=== PATIENT | female | born 2000 | race Caucasian/White ===

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

== ENCOUNTER 2018-01-27 12:44 | Day surgery (SDC) | payer OTHER ==
[2018-01-25 15:04] VITALS: BMI 31.6
[~2018-01-27 12:44] MED LIST: SODIUM CHLORIDE 0.9% 1,000 ML IV SCH; ceFAZolin IN SWFI 2 GM/20 ML SYRINGE IVP ONE
[2018-01-27 13:27] VITALS: RESP 16; TEMP 98.2
[2018-01-27] MEDS ORDERED: MIDAZOLAM 2 MG/2 ML VIAL ONE ×3 (14:03→14:22)
[2018-01-27] MEDS: MIDAZOLAM 2 MG/2 ML VIAL IV ONE ×2 (14:07→14:14)
[2018-01-27] MEDS: LIDOCAINE 2% INJ 20 MG/ML SQ ONE ×2 (14:13→14:19)
[2018-01-27] MEDS ORDERED: LIDOCAINE 2% INJ 20 MG/ML SQ ONE ×2 (14:14→14:25)
[2018-01-27] MEDS ORDERED: fentaNYL (PF) 50 MCG/ML 2 ML AMP ONE (14:17)
[2018-01-27] MEDS ORDERED: MIDAZOLAM 2 MG/2 ML VIAL IV ONE ×2 (14:20→14:23)
[2018-01-27] MEDS ORDERED: fentaNYL (PF) 50 MCG/ML 2 ML AMP IV ONE (14:20)
[2018-01-27] MEDS ORDERED: IBUPROFEN 600 MG TAB PO STA (14:36)
[2018-01-27] MEDS ORDERED: ACETAMINOPHEN IV (For NPO) 1,000 MG in EMPTY BAG 1 BAG IVPB ONE (14:38)
--- NOTE | 2018-01-27 14:41 | P.PCN ---
Preoperative Diagnosis: Patient underwent EP procedure under conscious sedation/moderate sedation, monitoring of the level of consciousness and physiologic parameters including but not limited to vital signs and oxygenation. Patient tolerated the procedure well without any acute complications. Start time: 1412 Stop time: 1434 22 minutes Loop monitor implant Primary physicians: Dr. Nicki Jesus Manager Hydraulic: Dr. Patel Indication: Recurrent syncope with palpitations Patient was brought to the EP lab in a fasting state. Written informed consent was obtained prior to the procedure. The left pectoral area was prepped and draped per protocol. Intravenous antibiotic was administered preoperatively. A subcutaneous Loop monitor was implanted successfully and the wound was closed per protocol. The device was programmed to detect significant latoya- arrhythmic and tachy-arrhythmic events, per protocol. Device and programming details: Programmed for detection of tachyarrhythmias as well as bradycardia arrhythmias
[2018-01-27] MEDS ORDERED: ACETAMINOPHEN IV (For NPO) 1,000 MG in EMPTY BAG 1 BAG IVPB STA (14:57)
[2018-01-27 16:03] VITALS: BP 114/55; PULSE 74
== END 2018-01-27 15:52 | disposition home or self-care (01) ==
LOC: CATHEP 12:44
PROVIDERS: ATTEND Internal Medicine Clinical Cardiac Electrophysiology
DX: R55 Syncope and collapse (principal); R00.2 Palpitations; R07.89 Other chest pain; Z79.51 Long term (current) use of inhaled steroids
CPT/HCPCS: 33282; 81025; C1764; J2001; J2250; J3010; J0690

== ENCOUNTER → 2020-09-09 | Outpatient (CLI) | payer OTHER ==
--- NOTE | 2020-09-09 12:31 | US ---
EXAMINATION TYPE: Transabdominal DATE OF EXAM: 09/09/2020 12:02 PM COMPARISON: NONE CLINICAL HISTORY: O46.91 Bleeding. Cramping discharge. EXAM PERFORMED: Transabdominal (TA) EXAM MEASUREMENTS: GESTATIONAL AGE / DATING Physician Established: (9 weeks/2 days) EDC: 04/12/2021 Dates by LMP: (9 weeks/2 days) EDC: 04/12/2021 Dates by First Scan: No previous this is first scan Dates by Current Scan for: (9 weeks/5 days) EDC: 04/09/2021 MATERNAL ANATOMY Uterus: 13.5 x 5.8 x 9.1 cm Right Ovary: 4.1 x 2.6 x 2.8 cm Left Ovary: 2.8 x 1.7 x 2.0 cm Post CDS / Adnexa: wnl Presence of free fluid: no Presence of corpus luteal cyst: yes Presence of subchorionic bleed: no GESTATION / SURVEY CRL: 2.9 cm (9 weeks/5 days) MSD: 5.5 cm (11 weeks/4 days) Yolk Sac (normal less than 6mm): 4 mm Heart Rate: 162 bpm Rhythm: Normal IUP: Viable IUP Beta HcG (if available): Not available at this time Single live intrauterine gestation with gestational sac, yolk sac, and pole are seen. No free f luid in pelvic cul-de-sac. Both ovaries seen. No suspicious extraovarian adnexal mass. IMPRESSION: Single live intrauterine gestation, mean crown-rump length 2.9 cm corresponding to 9 week 5 day old fetus.
== END | disposition home or self-care (01) ==
LOC: RADUSWWP 11:32
PROVIDERS: ATTEND Obstetrics & Gynecology
DX: O26.891 Other specified pregnancy related conditions, first trimester (principal); Z3A.09 9 weeks gestation of pregnancy; O46.91 Antepartum hemorrhage, unspecified, first trimester
CPT/HCPCS: 76801

== ENCOUNTER 2020-12-29 11:30 | Outpatient (CLI) | payer OTHER ==
[2020-12-29 13:01] VITALS: BP 118/55; PULSE 75; RESP 18; TEMP 97.1
--- NOTE | 2020-12-30 07:37 | P.MSEPDOC ---
Presenting Problems - Arrival Data Date of Arrival on Unit: 12/29/20 Time of Arrival on Unit: 11:40 Mode of Transport: Ambulatory - Complaint OB-Reason for Admission/Chief Complaint: Other Comment: c/o nausea onset last night. denies n/v/d, denies being exposed to sickness recently. crampiness onset yesterday morning that is continuing. states clear-yellow discharge. no fuid leaking or bleeding. hx of bleeding early in , decreased activity, fetus has 2 vessel cord. Medical History - Information : 1 Para: 0 Term: 0 : 0 Abortions: Spontaneous or Elective: 0 Number of Living Children: 0 - Gestational Age Gestational Age by MARGARETH (wks/days): 25 Weeks and 1 Days - History Comment: A-Fib, (Verapamil) POTS syndrome, (tachycardiia), Review of Systems - Review of Systems Constitutional: No problems Breast: No problems ENT: No problems Cardiovascular: No problems Respiratory: No problems Gastrointestinal: No problems Genitourinary: No problems Musculoskeletal: No problems Neurological: No problems Skin: No problems Comment: increasedd activity nted on fm per audio and discussed with pt and her the noise they are hearuing is movement. verb underst. Vital Signs - Temperature Temperature: 97.1 F Temperature Source: Temporal Artery Scan - Pulse Right Brachial Pulse Rate: 75 Pulse Assessment Method: Automatic Cuff - Respirations Respiratory Rate: 18 Oxygen Delivery Method: Room Air O2 Sat by Pulse Oximetry: 96 - Blood Pressure Right Arm Blood Pressure: 118/55 Blood Pressure Mean: 76 Blood Pressure Source: Automatic Cuff Medical Screen Scoring (Pre) - Cervical Exam Dilation: Exam Deferred Effacement: Exam Deferred Membranes: Intact - Uterine Contractions Frequency: N/A Duration: N/A Intensity: N/A - Maternal Vital Signs Maternal Temperature: N/A Maternal Blood Pressure: N/A Signs of Preeclampsia: N/A Maternal Respirations: N/A - Maternal Trauma Maternal Trauma: N/A - Assessment - Baby A Baseline FHR: 140 Heart Rate - NICHD Category: Category I (Normal) = 0 Position: N/A Station: N/A - Total Score - Baby A Total Score - Baby A: 0 - Total Score - Baby B Total Score - Baby B: 0 - Total Score - Baby C Total Score - Baby C: 0 - Level of Risk - Baby A Level of Risk - Baby A: Low (0-5) - Level of Risk - Baby B Level of Risk - Baby B: Low (0-5) - Level of Risk - Baby C Level of Risk - Baby C: Low (0-5) Physician Notification (Pre) - Physician Notified Physician Notified Date: 12/29/20 Physician Notified Time: 12:25 New Order Received: Yes - Notification Comment Comment: discharge home. keep sched appt. pelvic rest. increase fluid, eatlightly as tolerated until nausea passes. to call if symptoms worsen. Disposition - Disposition OB Disposition: Physician follow up in office, Discharge to home Discharge Date: 12/29/20 Discharge Time: 12:40 I agree with the RN Medical Screening Exam: Yes Case reviewed; plan agreed upon as documented in EMR&OBIX.: Yes Comments: Patient was neither seen nor examined by me. Diagnosis: DECREASED MOVEMENTS, SECOND TRIMESTER, FETUS 1
== END 2020-12-29 12:40 | disposition home or self-care (01) ==
LOC: FBPOP 11:30
PROVIDERS: ATTEND Obstetrics & Gynecology
DX: O36.8121 Decreased fetal movements, second trimester, fetus 1 (principal); Z3A.25 25 weeks gestation of pregnancy
CPT/HCPCS: 99213

== ENCOUNTER 2021-02-06 18:17 | Outpatient (CLI) | payer OTHER ==
[2021-02-06 20:01] LABS: Appearance,Urine Clear (Clear); Bacteria,Urine Occasional /hpf; Bilirubin,Urine Negative (Negative); Blood,Urine Negative (Negative); Color,Urine Light Yellow; Glucose,Urine (UA) Negative (Negative); Ketones,Urine Negative (Negative); Leukocyte Esterase,Urine Moderate (Negative); Nitrite,Urine Negative (Negative); PH, Urine 6.5 (5.0-8.0); Protein,Urine Negative (Negative); RBC,Urine <1 /hpf (0-5); Specific Gravity,Urine 1.005 (1.001-1.035); Squamous Epithelial Cell,Urine 2 /hpf (0-4); Urobilinogen,Urine <2.0 mg/dL (<2.0); WBC,Urine 1 /hpf (0-5)
[2021-02-06 20:57] VITALS: BP 129/66; PULSE 83; RESP 16; TEMP 97.6
--- NOTE | 2021-03-23 11:18 | P.MSEPDOC ---
Presenting Problems - Arrival Data Date of Arrival on Unit: 02/06/21 Time of Arrival on Unit: 18:17 Mode of Transport: Ambulatory - Complaint OB-Reason for Admission/Chief Complaint: Pain Comment: pt. c/o pain to fron lower part of her ABD that radiats to the back on both sides, rating pain 8/10, and spotting that started at 1400 today. no spotting present since present to triage Medical History - Information : 1 Para: 0 Term: 0 : 0 Abortions: Spontaneous or Elective: 0 Number of Living Children: 0 - Gestational Age Gestational Age by MARGARETH (wks/days): 30 Weeks and 5 Days Review of Systems - Review of Systems Constitutional: No problems Breast: No problems ENT: No problems Cardiovascular: No problems Respiratory: No problems Gastrointestinal: No problems Genitourinary: No problems Musculoskeletal: No problems Neurological: No problems Skin: No problems Vital Signs - Temperature Temperature: 97.6 F Temperature Source: Temporal Artery Scan - Pulse Pulse Oximetery Pulse Rate: 83 Pulse Assessment Method: Pulse Oximetry - Respirations Respiratory Rate: 16 Oxygen Delivery Method: Room Air O2 Sat by Pulse Oximetry: 100 - Blood Pressure Right Arm Blood Pressure: 129/66 Blood Pressure Mean: 87 Blood Pressure Source: Automatic Cuff Medical Screen Scoring - Assessment - Baby A Baseline FHR: 135 Physician Notification - Physician Notified Physician Notified Date: 02/06/21 Physician Notified Time: 19:00 Physician: Gabriel Mishra Order Received: Yes - Notification Comment Comment: send UA, check cervix, and see if patient has pelvic pain with gental palpation, symphisis pubic pain with palpation, cervix closed thick and high, UA results reviewed, order to complete culture on UA, discharge patient home and suggest maternal support belt to help with pain Disposition - Disposition OB Disposition: Discharge to home Discharge Date: 02/06/21 Discharge Time: 20:18 I agree with the RN Medical Screening Exam: Yes Physician's MSE Comment: I have neither seen nor examined the patient Case reviewed; plan agreed upon as documented in EMR&OBIX.: Yes Diagnosis: RELATED CONDITIONS, UNSPECIFIED, THIRD TRIMESTER
== END 2021-02-06 20:18 | disposition home or self-care (01) ==
LOC: FBPOP 18:17
PROVIDERS: ATTEND Obstetrics & Gynecology
DX: O26.893 Other specified pregnancy related conditions, third trimester (principal); R10.30 Lower abdominal pain, unspecified; Z3A.30 30 weeks gestation of pregnancy
CPT/HCPCS: 59025; 81001; 87086; 99213

== ENCOUNTER 2021-03-06 12:52 | Outpatient (CLI) | payer OTHER ==
[2021-03-06 14:31] LABS: Appearance,Urine Cloudy (Clear); Bacteria,Urine Occasional /hpf; Bilirubin,Urine Negative (Negative); Blood,Urine Negative (Negative); Color,Urine Yellow; Glucose,Urine (UA) Negative (Negative); Ketones,Urine Negative (Negative); Leukocyte Esterase,Urine Large (Negative); Mucus,Urine Rare /hpf; Nitrite,Urine Negative (Negative); Protein,Urine Negative (Negative); RBC,Urine <1 /hpf (0-5); Specific Gravity,Urine 1.015 (1.001-1.035); Squamous Epithelial Cell,Urine 8 /hpf (0-4); Urobilinogen,Urine <2.0 mg/dL (<2.0); WBC,Urine 3 /hpf (0-5)
[2021-03-06 15:04] VITALS: BP 131/75; PULSE 115; RESP 18; TEMP 96.6
--- NOTE | 2021-03-25 09:39 | P.MSEPDOC ---
Presenting Problems - Arrival Data Date of Arrival on Unit: 03/06/21 Time of Arrival on Unit: 12:52 Mode of Transport: Ambulatory - Complaint OB-Reason for Admission/Chief Complaint: PIH Comment: pt states having elevated bp at home, Medical History - Information : 1 Para: 0 Term: 0 : 0 Abortions: Spontaneous or Elective: 0 Number of Living Children: 0 - Gestational Age Gestational Age by MARGARETH (wks/days): 34 Weeks and 5 Days Review of Systems - Review of Systems Constitutional: No problems Breast: No problems ENT: No problems Cardiovascular: No problems Respiratory: No problems Gastrointestinal: No problems Genitourinary: No problems Musculoskeletal: No problems Neurological: No problems Skin: No problems Vital Signs - Temperature Temperature: 96.6 F Temperature Source: Temporal Artery Scan - Pulse Right Brachial Pulse Rate: 115 Pulse Assessment Method: Automatic Cuff - Respirations Respiratory Rate: 18 Oxygen Delivery Method: Room Air O2 Sat by Pulse Oximetry: 99 - Blood Pressure Right Arm Blood Pressure: 131/75 Blood Pressure Mean: 93 Blood Pressure Source: Automatic Cuff Medical Screen Scoring - Assessment - Baby A Baseline FHR: 125 Physician Notification - Physician Notified Physician Notified Date: 03/06/21 Physician Notified Time: 14:15 Physician: Sagrario Padgett Order Received: Yes - Notification Comment Comment: ua results negative for protien, bp within normal in triage, pt to follow up in office on wednesday at scheduled appt and bring home bp cuff with her to verify accuracy in office Disposition - Disposition OB Disposition: Physician follow up in office, Triage, Discharge to home, Written follow up instructions reviewed Discharge Date: 03/06/21 Discharge Time: 14:39 I agree with the RN Medical Screening Exam: Yes Case reviewed; plan agreed upon as documented in EMR&OBIX.: Yes Comments: Pateint was neither seen nor examined by me. Diagnosis: RELATED CONDITIONS, UNSPECIFIED, THIRD TRIMESTER
== END 2021-03-06 14:39 | disposition home or self-care (01) ==
LOC: FBPOP 12:52
PROVIDERS: ATTEND Obstetrics & Gynecology
DX: O99.893 Other specified diseases and conditions complicating puerperium (principal); R03.0 Elevated blood-pressure reading, without diagnosis of hypertension; Z3A.34 34 weeks gestation of pregnancy
CPT/HCPCS: 59025; 81001; 99215

== ENCOUNTER 2021-04-03 20:13 | Outpatient (CLI) | payer OTHER ==
[2021-04-04 02:04] VITALS: RESP 16
--- NOTE | 2021-04-04 08:41 | P.MSEPDOC ---
Presenting Problems - Arrival Data Date of Arrival on Unit: 04/03/21 Time of Arrival on Unit: 20:13 Mode of Transport: Ambulatory - Complaint OB-Reason for Admission/Chief Complaint: Possible Onset of Labor Comment: pt. present to triage due to contraction every 4-5 min Medical History - Information : 1 Para: 0 Term: 0 : 0 Abortions: Spontaneous or Elective: 0 Number of Living Children: 0 - Gestational Age Gestational Age by MARGARETH (wks/days): 38 Weeks and 6 Days Review of Systems - Review of Systems Constitutional: No problems Breast: No problems ENT: No problems Cardiovascular: No problems Respiratory: No problems Gastrointestinal: No problems Genitourinary: No problems Musculoskeletal: No problems Neurological: No problems Skin: No problems Vital Signs - Respirations Respiratory Rate: 16 Oxygen Delivery Method: Room Air Medical Screen Scoring - Cervical Exam Dilation (cm): 2 Effacement (%): 70 Station: -3 Membranes: Intact - Uterine Contractions Frequency From (mins): 3 Frequency To (mins): 7 Duration From (seconds): 30 Duration To (seconds): 80 Intensity: Moderate Resting: Soft to palpation - Assessment - Baby A Heart Rate - NICHD Category: Category I (Normal) NST: Reactive Physician Notification - Physician Notified Physician Notified Date: 04/04/21 Physician Notified Time: 21:28 Physician: Sagrario Padgett Order Received: Yes - Notification Comment Comment: cervix made no change after 1 hour, still 2cm, 70, -3, orders to discharge patient home Maternal Triage Index - Maternal Triage Index Presenting for scheduled procedure w/no complaint: No - Stat/Priority 1 Stat Priority 1: No - Urgent/Priority 2 Urgent Priority 2: No - Prompt/Priority 3 Prompt Priority 3: Yes Criteria Met for Priority 3: 38 and 5, cervix 2, 70%. -3 remains the same after one hour, contraction irregular 3-7 min Disposition - Disposition OB Disposition: Discharge to home Discharge Date: 04/04/21 Discharge Time: 21:31 I agree with the RN Medical Screening Exam: Yes Case reviewed; plan agreed upon as documented in EMR&OBIX.: Yes Comments: Patient was neither seen nor examined by me Diagnosis: FALSE LABOR AT OR AFTER 37 COMPLETED WEEKS OF GESTATION
== END 2021-04-03 21:31 | disposition home or self-care (01) ==
LOC: FBPOP 20:13
PROVIDERS: ATTEND Obstetrics & Gynecology
DX: O47.1 False labor at or after 37 completed weeks of gestation (principal); Z3A.38 38 weeks gestation of pregnancy
CPT/HCPCS: 59025; 99213

== ENCOUNTER 2021-04-04 00:14 | Inpatient (IN) | payer OTHER ==
[2021-04-04] MEDS ORDERED: METHYLERGONOVINE 0.2 MG/ML 1 ML AMP IM PRN (00:49)
[2021-04-04] MEDS ORDERED: OXYTOCIN 10 UNIT/ML 1 ML VIAL IM PRN (00:49)
[2021-04-04] MEDS ORDERED: CARBOPROST TROMETHAMINE 250 MCG/ML 1 ML AMP IM PRN (00:49)
[2021-04-04] MEDS ORDERED: TERBUTALINE 1 MG/ML VIAL SQ PRN (00:49)
[2021-04-04] MEDS ORDERED: LIDOCAINE 0.5% (PF) 5 MG/ML (50 ML SDV) SQ PRN (00:49)
[2021-04-04] MEDS: BUTORPHANOL 1 MG/ML 1 ML VIAL IV PRN ×2 (01:10→03:18)
[2021-04-04] MEDS: LACTATED RINGERS 1,000 ML IV SCH ×3 (01:10→05:44)
[2021-04-04 01:41] LABS: Basophils % (A) 0 %; Eosinophils # (A) 0.1 k/uL (0-0.7); Eosinophils % (A) 1 %; HCT 36.9 % (34.0-46.0); HGB 12.7 gm/dL (11.4-16.0); Lymphocytes # (A) 2.5 k/uL (1.0-4.8); Lymphocytes % (A) 18 %; MCH 29.5 pg (25.0-35.0); MCHC 34.4 g/dL (31.0-37.0); MCV 85.7 fL (80.0-100.0); Mean Platelet Volume 9.5; Monocytes # (A) 0.6 k/uL (0-1.0); Monocytes % (A) 5 %; Neutrophils # (A) 10.3 k/uL (1.3-7.7); Neutrophils % (A) 75 %; Platelet Count 251 k/uL (150-450); RBC 4.31 m/uL (3.80-5.40); RDW 13.4 % (11.5-15.5); WBC 13.7 k/uL (3.8-10.6)
[2021-04-04 01:49] VITALS: RESP 16
[2021-04-04] MEDS ORDERED: SODIUM CHLORIDE 0.9% 100 ML BAG ONE (05:10)
[2021-04-04] MEDS ORDERED: ROPIVACAINE 5MG/ML 20ML VIAL ONE (05:10)
[2021-04-04] MEDS ORDERED: PROPOFOL 10 MG/ML 20 ML VIAL IV ONE (05:10)
[2021-04-04] MEDS ORDERED: PHENYLEPHRINE-0.9% NACL SYG 1,000 MCG/10 ML SYRINGE ONE (05:10)
[2021-04-04] MEDS ORDERED: OXYTOCIN 30 UNITS/500 ML NS 30 UNIT in SALINE 1 500ML.BAG IV SCH (06:15)
--- NOTE | 2021-04-04 08:32 | P.HPOB ---
History of Present Illness H&P Date: 04/04/21 Chief Complaint: Strong regular uterine contractions This is a 20-year-old white female 1 para 0 EDC 04/12/2021 at 38-6/7 weeks' gestation. Patient presented with strong regular uterine contractions, in active labor from home. Fetus active throughout the . history significant for single umbilical artery, blood type O negative, rubella status nonimmune. Hepatitis B surface antigen, HIV testing, gonorrhea and chlamydia cultures, group B strep cultures, urine culture all negative. One-hour Glucola 118. Past medical history is significant for asthma, atrial fibrillation, PCO OS, supraventricular tachycardia. Past surgical history tonsillectomy and adenoid ectomy. Cholecystectomy, cardiac cath per Dr. marie. Current medications verapamil 40 mg daily, vitamin daily. ALLERGIES none known. Family history significant for diabetes, Crohn's disease, unspecified defects. Social history patient has never been a smoker or 3 per, she is , she works at [employer], she denies alcohol tobacco or drug use. On exam patient is 5 foot 5 inches, 218 pounds, blood pressure 122/68, pulse 83, respirations 16, temperature 97.7, 99% O2 saturation. The general physical exam is within normal limits. Cervix is 9-1/2 cm at time of this dictation, -1 station, 90% effaced, vertex presentation. Spontaneous amniorrhexis has occurred for light meconium-stained fluid. heart rate is consistent with reactive NST. Impression: 38-6/7 weeks intrauterine , active spontaneous labor. Light meconium-stained fluid. Single umbilical artery noted. Otherwise all signs reassuring at this time. Plan: Oxytocin augmentation as needed. Continue close maternal and surveillance. Anticipate normal spontaneous vaginal delivery. Review of Systems Constitutional: Reports as per HPI Past Medical History Past Medical History: Atrial Fibrillation, Asthma, Syncope Additional Past Medical History / Comment(s): Paroxysmal Afib, orthostatic tachycardia syndrome. See Dr. Alvarado's H&P. History of Any Multi-Drug Resistant Organisms: None Reported Past Surgical History: Cholecystectomy, EPS, Tonsillectomy Additional Past Surgical History / Comment(s): EP study Past Anesthesia/Blood Transfusion Reactions: No Reported Reaction, Postoperative Nausea & Vomiting (PONV) Past Psychological History: No Psychological Hx Reported Additional Psychological History / Comment(s): Pt resides with her boyfriend. She is independent. She drives. She works at a hardware store. Smoking Status: Never smoker Past Alcohol Use History: None Reported Past Drug Use History: None Reported - Past Family History Mother Family Medical History: No Reported History Father Family Medical History: No Reported History Medications and Allergies Home Medications Medication Instructions Recorded Confirmed Type Pnv,Calcium 72/Iron/Folic Acid 1 each PO DAILY MDD 1 tab 12/29/20 04/04/21 History [ Plus Tablet] Verapamil [Isoptin] 40 mg PO ONCE MDD 40 12/29/20 04/04/21 History Allergies Allergy/AdvReac Type Severity Reaction Status Date / Time No Known Allergies Allergy Verified 03/29/21 21:57 Exam Vital Signs Temp Pulse Resp BP 04/04/21 00:46 97.7 F 83 16 122/68 Intake and Output 04/03/21 04/04/21 04/04/21 22:59 06:59 14:59 Intake Total 1999 Balance 1999 Intake: IV 1999 Other: Weight 98.883 kg See dictation under HPI please Results Result Diagrams: 04/04/21 01:00 Abnormal Lab Results - Last 24 Hours (Table) 04/04/21 Range/Units 01:00 WBC 13.7 H (3.8-10.6) k/uL Neutrophils # 10.3 H (1.3-7.7) k/uL Assessment and Plan Assessment: 38-6/7 weeks intrauterine , single umbilical artery, light meconium- stained fluid, maternal history of atrial fibrillation cardiac status stable, active labor. Epidural in place. All signs reassuring. Plan: Continue close maternal and surveillance. Anticipate normal spontaneous vaginal delivery.
[2021-04-04] MEDS ORDERED: VERAPAMIL 40 MG TAB PO STA (08:33)
[2021-04-04] MEDS ORDERED: diphenhydrAMINE 25 MG CAP PO PRN (10:26)
[2021-04-04] MEDS ORDERED: LANOLIN CREAM 5 GM TUBE TOPICAL PRN (10:26)
[2021-04-04] MEDS ORDERED: ACETAMINOPHEN TAB 325 MG TAB PO PRN (10:26)
[2021-04-04] MEDS ORDERED: MEASLES-MUMPS-RUBELLA VACC/PF 12,500 UNIT/0.5 ML VIAL SQ ONE (10:26)
[2021-04-04] MEDS ORDERED: BENZOCAINE/MENTHOL SPRAY 1 GM/SPRAY AEROSOL TOPICAL PRN (10:26)
[2021-04-04] MEDS ORDERED: diphenhydrAMINE 50 MG CAP PO PRN (10:26)
[2021-04-04] MEDS ORDERED: diphenhydrAMINE 50 MG/ML 1 ML VIAL IVP PRN ×2 (10:26)
[2021-04-04] MEDS ORDERED: HYDROCORTISONE 2.5% RECTAL CREAM 30 GM TUBE RECTAL PRN (10:26)
[2021-04-04] MEDS ORDERED: ZOLPIDEM 5 MG TAB PO PRN (10:26)
[2021-04-04] MEDS ORDERED: SIMETHICONE 80 MG CHEWABLE PO PRN (10:26)
[2021-04-04] MEDS ORDERED: diphenhydrAMINE ELIXIR 25 MG/10 ML CUP PO PRN (10:26)
--- NOTE | 2021-04-04 10:26 | P.PROBDLV ---
Vaginal Delivery Note - . Vaginal Delivery Note: This is a 20-year-old white female 1 para 0 EDC 04/12/2021 at 38-6/7 weeks' gestation who presented from home with strong regular uterine contractions. Fetus is been active throughout the . Blood type is O-, rubella status nonimmune, single umbilical artery noted. Spontaneous amniorrhexis at the bedside revealed light meconium-stained fluid. Please see my dictated history and physical for details. Oxytocin was started and titrated per hospital protocol as needed. Epidural was placed per her request. She progressed well through the first stage of labor and became completely dilated at 0850 hours. She began the second stage of labor at that time. With excellent maternal expulsive efforts slowly the infant crowned in the occiput anterior position. The perineal body was prepped and draped in usual sterile fashion. delivered occiput anterior and restituted accordingly. There was a nuchal cord 2 noted, this was easily reduced. Patient was officially delivered of a liveborn female infant at 1009 hours. Umbilical cord was doubly clamped and ligated, she was handed to waiting nurses for evaluation where scores of 9 and 9 at one and 5 minutes respectively were given. The placenta delivered spontaneously, it was inspected and noted to be intact with trivascular cord, a true knot in the cord, meconium-stained. It was sent to pathology for evaluation. Infant weighed 3485 g or 7 lbs. 11 oz. Careful inspection now of the cervix, vagina, perineum, periurethral, and perirectal areas revealed a small first-degree perineal laceration. This was repaired in the usual fashion with a [id number]-[id number]-[id number] suture of 3-0 Rapide. Uterus is firm and in the midline, symmetric and 18 week size. All sponge needle and enhancement counts are correct. Patient and her family are allowed to begin the bonding experience in the LDR.
[2021-04-04] MEDS: IBUPROFEN 600 MG TAB PO SCH ×4 (10:37→19:33)
[2021-04-04] MEDS: SENNOSIDES-DOCUSATE SODIUM 1 EACH TAB PO SCH (20:20)
[2021-04-05] MEDS: SENNOSIDES-DOCUSATE SODIUM 1 EACH TAB PO SCH (08:13)
[2021-04-05] MEDS: IBUPROFEN 600 MG TAB PO SCH (08:13)
--- NOTE | 2021-04-05 09:35 | P.DS ---
Providers Date of admission: 04/04/21 00:42 Expected date of discharge: 04/05/21 Attending physician: Sagrario Padgett Primary care physician: Stated None - Discharge Diagnosis(es) (1) Normal spontaneous vaginal delivery Current Visit: Yes Status: Acute Hospital Course: The patient is a 20-year-old 1 para 0 admitted at 38-6/7 weeks by good dating parameters. She is admitted in active labor with all signs reassuring. Her has been uncomfortable she is known to have a single umbilical artery and is also Rh- and received RhoGAM at 28 weeks. On labor and delivery, she had Pitocin augmentation started with spontaneous rupture of membranes. She had an epidural catheter placed for analgesia and then progressed to complete where after she pushed to a normal spontaneous vaginal delivery of a viable 7 lbs. 11 oz. baby girl with Apgars of 9 at 1 minute and 9 at 5 minutes. Her course was unremarkable with vital signs remaining stable and her temperature was afebrile throughout. She was deemed stable for discharge on day #1 was discharged home to follow-up in the office in 6 weeks' time routinely. Discharge instructions included calling for any significantly increased bleeding or foul-smelling lochia, significantly increased fever or abdominal pain, perineal complaints, breast complaints, or anything else that concerned her. She was additionally instructed to have nothing in the vagina for at least 6 weeks time to include intercourse. She understood her instructions and agrees follow up as noted above. Discharge medications included only [id number]-[id number] analgesic pain medications as well as continued vitamins as she has opted to breast-feed. Maternal blood type is O- and rubella status is nonimmune. She therefore was treated receive the MMR vaccination prior to discharge. Procedures: #1. Pitocin augmentation #2. Epidural analgesia #3. Normal spontaneous vaginal delivery 4. Repair of perineal laceration Patient Condition at Discharge: Stable Plan - Discharge Summary New Discharge Prescriptions: No Action Verapamil [Isoptin] 40 mg PO ONCE MDD 40 Pnv,Calcium 72/Iron/Folic Acid [ Plus Tablet] 1 each PO DAILY MDD 1 tab Discharge Medication List Pnv,Calcium 72/Iron/Folic Acid [ Plus Tablet] 1 each PO DAILY MDD 1 tab 12/29/20 [History] Verapamil [Isoptin] 40 mg PO ONCE MDD 40 12/29/20 [History] Follow up Appointment(s)/Referral(s): Sagrario Padgett MD [STAFF PHYSICIAN] - 6 Weeks Discharge Disposition: HOME SELF-CARE
[2021-04-05 11:19] VITALS: BP 108/65; PULSE 104; TEMP 97.8
== END 2021-04-05 13:07 | disposition home or self-care (01) | DRG 805 ==
LOC: FBPOP 00:14 → 4FBP 00:42
PROVIDERS: ADMIT Obstetrics & Gynecology; ATTEND Obstetrics & Gynecology
PROC: 10E0XZZ Delivery of Products of Conception, External Approach (ICD-10-PCS; principal; 2021-04-04)
PROC: 0HQ9XZZ Repair Perineum Skin, External Approach (ICD-10-PCS; 2021-04-04)
DX: O69.2XX0 Labor and delivery complicated by other cord entanglement, with compression, not applicable or unspecified (principal); O99.42 Diseases of the circulatory system complicating childbirth; Z37.0 Single live birth; O69.81X0 Labor and delivery complicated by cord around neck, without compression, not applicable or unspecified; I48.0 Paroxysmal atrial fibrillation; J45.909 Unspecified asthma, uncomplicated; O69.89X0 Labor and delivery complicated by other cord complications, not applicable or unspecified; O70.0 First degree perineal laceration during delivery; O77.0 Labor and delivery complicated by meconium in amniotic fluid; O99.52 Diseases of the respiratory system complicating childbirth; Z3A.38 38 weeks gestation of pregnancy; Z79.899 Other long term (current) drug therapy; Z83.3 Family history of diabetes mellitus
CPT/HCPCS: 85025; 86850; 86900; 86901; 88307; 90707

== ENCOUNTER 2021-08-14 09:36 | Emergency (ER) | payer OTHER ==
--- NOTE | 2021-08-14 12:18 | US ---
EXAMINATION TYPE: US transvaginal DATE OF EXAM: 08/14/2021 COMPARISON: NONE CLINICAL HISTORY: pain. Patient sent by Dr. Padgett. Patient bleeding and passing tissue. Patient not , but believed to have infection. TECHNIQUE: Transvaginal (TV) Date of LMP: bleeding and spotting since 07-21-21 EXAM MEASUREMENTS: Uterus: 7.9 x 5.2 x 2.3 cm Endometrial Stripe: 0.8 cm Right Ovary: Obscured by overlying bowel gas Left Ovary: 2.3 x 1.4 x 1.6 cm 1. Uterus: Anteverted wnl 2. Endometrium: wnl 3. Right Ovary: Obscured by overlying bowel gas 4. Left Ovary: wnl Spectral, color and waveform doppler imaging shows good arterial and venous flow within the left ov london; there is no evidence for ovarian torsion on left, right not seen. 5. Bilateral Adnexa: wnl 6. Posterior cul-de-sac: wnl IMPRESSION: 1. Visualized portions of the pelvic ultrasound appear unremarkable
[2021-08-14 13:02] LABS: ALT 24 U/L (4-34); AST 26 U/L (14-36); African American GFR (CKD) >90 (>60 ml/min/1.73 sqM); Albumin 4.6 g/dL (3.5-5.0); Alkaline Phosphatase 85 U/L (38-126); Anion Gap 12 mmol/L; Blood Urea Nitrogen 16 mg/dL (7-17); Calcium 9.6 mg/dL (8.4-10.2); Carbon Dioxide 19 mmol/L (22-30); Chloride 107 mmol/L (98-107); Glucose 98 mg/dL (74-99); Non-African American GFR(CKD) 84 (>60 ml/min/1.73 sqM); Potassium 3.8 mmol/L (3.5-5.1); Sodium 138 mmol/L (137-145); Total Bilirubin 0.7 mg/dL (0.2-1.3); Total Protein 7.6 g/dL (6.3-8.2)
[2021-08-14 13:07] LABS: Basophils % (A) 1 %; Eosinophils # (A) 0.1 k/uL (0-0.7); Eosinophils % (A) 1 %; HCT 47.7 % (34.0-46.0); HGB 16.4 gm/dL (11.4-16.0); Lymphocytes # (A) 1.1 k/uL (1.0-4.8); Lymphocytes % (A) 15 %; MCH 28.9 pg (25.0-35.0); MCHC 34.4 g/dL (31.0-37.0); Mean Platelet Volume 8.2; Monocytes # (A) 0.5 k/uL (0-1.0); Monocytes % (A) 7 %; Neutrophils # (A) 5.3 k/uL (1.3-7.7); Neutrophils % (A) 76 %; Platelet Count 264 k/uL (150-450); RBC 5.68 m/uL (3.80-5.40); RDW 12.8 % (11.5-15.5)
[2021-08-14] MEDS ORDERED: SODIUM CHLORIDE 0.9% 1,000 ML IV STA (13:25)
--- NOTE | 2021-08-14 14:01 | ED ---
General Adult HPI - General Chief complaint: Vaginal Bleeding Stated complaint: Vaginal bleeding/infection Time Seen by Provider: 08/14/21 11:33 Source: patient, RN notes reviewed Mode of arrival: ambulatory Limitations: no limitations - History of Present Illness Initial comments: 20-year-old female presents to the emergency department with complaints of vaginal bleeding, onset July 21. Patient states she received a Depo-Provera injection on June 21 after having routine vaginal delivery 4 months ago. Patient states she has had increased cramping and is passing large clots she describes as tissue in appearance since then. Patient states she was seen by her primary care provider who sent a clot to pathology- patient states the report shows fragment of benign endometrium. She continued to have heavy bleeding for the next approximately 10 days, and then was seen by her SILK SCREEN PROCESSOR who started her on an antibiotic which she has been taking compliantly. However, patient states she continues to have heavy bleeding and was sent here for f urther evaluation. Patient denies fever, chills, dizziness, headache, shortness of breath, chest pain, constipation, diarrhea, and dysuria. - Related Data Home Medications Medication Instructions Recorded Confirmed Verapamil [Isoptin] 20 mg PO BID 12/29/20 08/14/21 Amoxic-Pot Clav 875-125Mg 1 tab PO Q12HR 08/14/21 08/14/21 [Augmentin 875-125] Allergies Allergy/AdvReac Type Severity Reaction Status Date / Time No Known Allergies Allergy Verified 08/14/21 14:02 Review of Systems ROS Statement: Those systems with pertinent positive or pertinent negative responses have been documented in the HPI. ROS Other: All systems not noted in ROS Statement are negative. Past Medical History Past Medical History: Atrial Fibrillation, Asthma, Syncope Additional Past Medical History / Comment(s): Paroxysmal Afib, orthostatic tachycardia syndrome. See Dr. Alvarado's H&P. History of Any Multi-Drug Resistant Organisms: None Reported Past Surgical History: Cholecystectomy, EPS, Tonsillectomy Additional Past Surgical History / Comment(s): EP study Past Anesthesia/Blood Transfusion Reactions: No Reported Reaction, Postoperative Nausea & Vomiting (PONV) Past Psychological History: No Psychological Hx Reported Smoking Status: Never smoker Past Alcohol Use History: None Reported Past Drug Use History: None Reported - Past Family History Mother Family Medical History: No Reported History Father Family Medical History: No Reported History General Exam Limitations: no limitations General appearance: alert, in no apparent distress ENT exam: Present: normal exam, normal oropharynx, mucous membranes moist Neck exam: Present: normal inspection. Absent: tenderness, meningismus, lymphadenopathy Respiratory exam: Present: normal lung sounds bilaterally. Absent: respiratory distress, wheezes, rales, rhonchi, stridor Cardiovascular Exam: Present: regular rate, normal rhythm, normal heart sounds. Absent: systolic murmur, diastolic murmur, rubs, gallop, clicks GI/Abdominal exam: Present: soft, normal bowel sounds. Absent: distended, tenderness, guarding, rebound, rigid Neurological exam: Present: alert, oriented X3, CN II-XII intact Psychiatric exam: Present: normal affect, normal mood Skin exam: Present: warm, dry, intact, normal color. Absent: rash Course Vital Signs 08/14/21 08/14/21 08/14/21 11:29 14:31 15:32 Temperature 98.1 F 98.2 F Pulse Rate 98 90 86 Respiratory 20 20 16 Rate Blood Pressure 125/82 117/79 120/80 O2 Sat by Pulse 100 97 98 Oximetry - Reevaluation(s) Reevaluation #1: 08/14/21 13:00 She was provided with a glass of water and reminded of need for urine sample. 08/14/21 13:30 Patient states she is still unable to provide a urine sample therefore IV fluids will be ordered. 08/14/21 14:30 Offered straight cath, but patient she thinks she'll be able to provide a urine sample. Medical Decision Making - Medical Decision Making 20-year-old female presents to the emergency department for evaluation of intermittent heavy vaginal bleeding that began on July 21, preceded by Depo- Provera. Patient was seen by her SILK SCREEN PROCESSOR prior to arrival who sent her here for further evaluation and treatment. Upon exam, patient is well-appearing, afebrile , and tolerating oral intake without difficulty. Pelvic ultrasound was obtained and shows no significant findings. COVID test was negative. Laboratory specimens were reviewed, hemoglobin is 16.4, hematocrit 47.7; no leukocytosis. Patient was unable to provide a urine specimen, therefore IV fluids were given. Results were reviewed with my attending Dr. Euceda, who also spoke with patient's SILK SCREEN PROCESSOR Dr. Padgett. Patient will be discharged home to continue oral antibiotic therapy as previously prescribed. Patient is instructed to follow-up with her primary care provider or Dr. Padgett , as both have been involved in the care of this current complaint. Return parameters were discussed in detail. Patient verbalizes understanding and agrees with this plan. - Lab Data Result diagrams: 08/14/21 12:15 08/14/21 12:15 Lab Results 08/14/21 08/14/21 08/14/21 Range/Units 12:15 12:15 12:15 WBC 7.0 (3.8-10.6) k/uL RBC 5.68 H (3.80-5.40) m/uL Hgb 16.4 H (11.4-16.0) gm/dL Hct 47.7 H (34.0-46.0) % MCV 84.0 (80.0-100.0) fL MCH 28.9 (25.0-35.0) pg MCHC 34.4 (31.0-37.0) g/dL RDW 12.8 (11.5-15.5) % Plt Count 264 (150-450) k/uL MPV 8.2 Neutrophils % 76 % Lymphocytes % 15 % Monocytes % 7 % Eosinophils % 1 % Basophils % 1 % Neutrophils # 5.3 (1.3-7.7) k/uL Lymphocytes # 1.1 (1.0-4.8) k/uL Monocytes # 0.5 (0-1.0) k/uL Eosinophils # 0.1 (0-0.7) k/uL Basophils # 0.0 (0-0.2) k/uL Sodium 138 (137-145) mmol/L Potassium 3.8 (3.5-5.1) mmol/L Chloride 107 (98-107) mmol/L Carbon Dioxide 19 L (22-30) mmol/L Anion Gap 12 mmol/L BUN 16 (7-17) mg/dL Creatinine 0.96 (0.52-1.04) mg/dL Est GFR (CKD-EPI)AfAm >90 (>60 ml/min/1.73 sqM) Est GFR (CKD-EPI)NonAf 84 (>60 ml/min/1.73 sqM) Glucose 98 (74-99) mg/dL Plasma Lactic Acid Quintin 0.8 (0.7-2.0) mmol/L Calcium 9.6 (8.4-10.2) mg/dL Total Bilirubin 0.7 (0.2-1.3) mg/dL AST 26 (14-36) U/L ALT 24 (4-34) U/L Alkaline Phosphatase 85 (38-126) U/L Total Protein 7.6 (6.3-8.2) g/dL Albumin 4.6 (3.5-5.0) g/dL Coronavirus (PCR) (Not Detectd) 08/14/21 Range/Units 12:15 WBC (3.8-10.6) k/uL RBC (3.80-5.40) m/uL Hgb (11.4-16.0) gm/dL Hct (34.0-46.0) % MCV (80.0-100.0) fL MCH (25.0-35.0) pg MCHC (31.0-37.0) g/dL RDW (11.5-15.5) % Plt Count (150-450) k/uL MPV Neutrophils % % Lymphocytes % % Monocytes % % Eosinophils % % Basophils % % Neutrophils # (1.3-7.7) k/uL Lymphocytes # (1.0-4.8) k/uL Monocytes # (0-1.0) k/uL Eosinophils # (0-0.7) k/uL Basophils # (0-0.2) k/uL Sodium (137-145) mmol/L Potassium (3.5-5.1) mmol/L Chloride (98-107) mmol/L Carbon Dioxide (22-30) mmol/L Anion Gap mmol/L BUN (7-17) mg/dL Creatinine (0.52-1.04) mg/dL Est GFR (CKD-EPI)AfAm (>60 ml/min/1.73 sqM) Est GFR (CKD-EPI)NonAf (>60 ml/min/1.73 sqM) Glucose (74-99) mg/dL Plasma Lactic Acid Quintin (0.7-2.0) mmol/L Calcium (8.4-10.2) mg/dL Total Bilirubin (0.2-1.3) mg/dL AST (14-36) U/L ALT (4-34) U/L Alkaline Phosphatase (38-126) U/L Total Protein (6.3-8.2) g/dL Albumin (3.5-5.0) g/dL Coronavirus (PCR) Not Detected (Not Detectd) - Radiology Data Radiology results: report reviewed Transvaginal ultrasound was obtained. Report was reviewed in its entirety. Impression per Dr. Negro is visualized portions of the pelvic ultrasound appear unremarkable. Disposition Clinical Impression: Abnormal uterine bleeding Disposition: HOME SELF-CARE Condition: Stable Instructions (If sedation given, give patient instructions): Dysfunctional Uterine Bleeding (ED) Additional Instructions: Continue antibiotic as prescribed. May take Motrin as needed for discomfort. Follow-up with her family doctor or Dr. Padgett for recheck. Return to the emergency department with any new, worsening, or concerning symptoms. Is patient prescribed a controlled substance at d/c from ED?: No Referrals: Yvan Eduardo MD [Primary Care Provider] - 1-2 days Sagrario Padgett MD [STAFF PHYSICIAN] - 1-2 days Time of Disposition: 15:24
[2021-08-14 15:33] VITALS: BP 120/80; PULSE 86; RESP 16; TEMP 98.2
== END 2021-08-14 15:36 | disposition home or self-care (01) ==
LOC: EC 09:36
DX: N93.9 Abnormal uterine and vaginal bleeding, unspecified (principal); I48.91 Unspecified atrial fibrillation; J45.909 Unspecified asthma, uncomplicated; I48.0 Paroxysmal atrial fibrillation; Z20.822 Contact with and (suspected) exposure to COVID-19; Z90.49 Acquired absence of other specified parts of digestive tract
CPT/HCPCS: 36415; 76830; 80053; 83605; 85025; 87635; 93976; 96360; 99284

== ENCOUNTER 2023-10-25 22:58 | Emergency (ER) | payer BC, OTHER ==
[2023-10-25 23:31] VITALS: TEMP 96.9
[2023-10-25] MEDS ORDERED: SODIUM CHLORIDE 0.9% 500 ML 500 ML IV STA (23:39)
[2023-10-26 00:07] LABS: Basophils # (A) 0.1 k/uL (0-0.2); Basophils % (A) 1 %; Eosinophils # (A) 0.2 k/uL (0-0.7); Eosinophils % (A) 2 %; HCT 38.9 % (34.0-46.0); HGB 13.5 gm/dL (11.4-16.0); Lymphocytes # (A) 2.2 k/uL (1.0-4.8); Lymphocytes % (A) 25 %; MCH 30.2 pg (25.0-35.0); MCHC 34.7 g/dL (31.0-37.0); MCV 87.1 fL (80.0-100.0); Mean Platelet Volume 8.4; Monocytes # (A) 0.4 k/uL (0-1.0); Monocytes % (A) 5 %; Neutrophils % (A) 67 %; Platelet Count 260 k/uL (150-450); RBC 4.47 m/uL (3.80-5.40)
[2023-10-26 00:15] LABS: African American GFR (CKD) >90 (>60 ml/min/1.73 sqM); Anion Gap 6 mmol/L; Blood Urea Nitrogen 11 mg/dL (7-17); Calcium 8.9 mg/dL (8.4-10.2); Carbon Dioxide 23 mmol/L (22-30); Chloride 109 mmol/L (98-107); Glucose 97 mg/dL (74-99); Non-African American GFR(CKD) >90 (>60 ml/min/1.73 sqM); Potassium 3.7 mmol/L (3.5-5.1); Sodium 138 mmol/L (137-145)
--- NOTE | 2023-10-26 00:59 | ED ---
General Adult HPI - General Chief complaint: Syncope Stated complaint: Syncope Time Seen by Provider: 10/25/23 23:09 Source: EMS Mode of arrival: EMS Limitations: no limitations - History of Present Illness Initial comments: 's patient is 23-year-old woman with history of pots syndrome, who arrives here as transfer from [facility] to have further evaluation after she had syncopal episode. The patient had gone there this evening with complaint of having some vaginal bleeding and discomfort following IUD placement. I review of the transfer papers reveals that the patient did have computed tomography scan of the abdomen and pelvis which does not show any complication related to the IUD placement. There is no evidence of perforation. On arrival here, the patient not having chest pain, dyspnea, orthostasis currently. -: hour(s) Location: pelvis Radiation: non-radiation Quality: aching Improves with: none Worsens with: none Associated Symptoms: other (Syncope) Treatments Prior to Arrival: none - Related Data Home Medications Medication Instructions Recorded Confirmed Verapamil [Isoptin] 20 mg PO BID 12/29/20 08/14/21 Amoxic-Pot Clav 875-125Mg 1 tab PO Q12HR 08/14/21 08/14/21 [Augmentin 875-125] Allergies Allergy/AdvReac Type Severity Reaction Status Date / Time No Known Allergies Allergy Verified 08/14/21 14:02 Review of Systems ROS Statement: Those systems with pertinent positive or pertinent negative responses have been documented in the HPI. ROS Other: All systems not noted in ROS Statement are negative. Constitutional: Denies: fever, chills, weakness Eyes: Denies: vision change Respiratory: Denies: cough, dyspnea Cardiovascular: Reports: syncope. Denies: chest pain, palpitations Gastrointestinal: Denies: abdominal pain, vomiting, diarrhea Genitourinary: Reports: as per HPI. Denies: dysuria, hematuria Musculoskeletal: Denies: back pain Skin: Denies: rash Neurological: Denies: headache, weakness, numbness Past Medical History Past Medical History: Atrial Fibrillation, Asthma, Syncope Additional Past Medical History / Comment(s): Paroxysmal Afib, orthostatic tachycardia syndrome. See Dr. Alvarado's H&P. History of Any Multi-Drug Resistant Organisms: None Reported Past Surgical History: Cholecystectomy, EPS, Tonsillectomy Additional Past Surgical History / Comment(s): EP study Past Anesthesia/Blood Transfusion Reactions: No Reported Reaction, Postoperative Nausea & Vomiting (PONV) Past Psychological History: No Psychological Hx Reported Smoking Status: Never smoker Past Alcohol Use History: None Reported Past Drug Use History: None Reported - Past Family History Mother Family Medical History: No Reported History Father Family Medical History: No Reported History General Exam Limitations: no limitations General appearance: alert, in no apparent distress Head exam: Present: atraumatic, normocephalic Eye exam: Present: normal appearance. Absent: scleral icterus, conjunctival injection ENT exam: Present: normal oropharynx Neck exam: Present: normal inspection, full ROM Respiratory exam: Present: normal lung sounds bilaterally. Absent: respiratory distress, wheezes, rales, rhonchi, stridor, accessory muscle use Cardiovascular Exam: Present: regular rate, normal rhythm, normal heart sounds. Absent: systolic murmur, diastolic murmur, rubs, gallop GI/Abdominal exam: Present: soft. Absent: distended, tenderness, guarding, rebo und, rigid, mass Extremities exam: Present: normal inspection, normal capillary refill. Absent: pedal edema, calf tenderness Back exam: Present: normal inspection. Absent: CVA tenderness (R), CVA tenderness (L) Neurological exam: Present: alert Skin exam: Present: warm, dry, intact, normal color. Absent: rash Course Vital Signs 10/25/23 10/26/23 23:02 02:16 Temperature 96.9 F L Pulse Rate 102 H 91 Respiratory 18 16 Rate Blood Pressure 135/84 119/72 O2 Sat by Pulse 96 97 Oximetry EKG Findings - EKG Results: EKG: interpreted by ERMD, sinus rhythm, normal axis, normal QRS, normal ST/T, no acute changes EKG shows: tachycardia (Rate 113 bpm) Medical Decision Making - Medical Decision Making Patient is 23-year-old woman here to have evaluation after she had syncopal episode at the other hospital after having IUD placement. On arrival here, patient's vital signs stable and hemoglobin is normal. There is no excessive bleeding. The patient does have history of pots and will have patient follow as she may need treatment to support blood pressure. Other had been question ra ised whether patient had a seizure, but no definite seizure activity. Patient has had previous EEG that was negative. The patient currently at baseline, no concerning neurologic findings and at this point stable to have further evaluation as outpatient. Was pt. sent in by a medical professional or institution (KELSEY Adamson, SOFT TILE SETTER, urgent care, hospital, or fdc...) When possible be specific @ -Patient arrives here as transfer from [facility] Did you speak to anyone other than the patient for history (EMS, parent, family, police, friend...)? What history was obtained from this source @ -[Case discussed with transferring physician Did you review nursing and triage notes (agree or disagree)? Why? @ -[I reviewed and agree with nursing and triage notes] Were old charts reviewed (outside hosp., previous admission, EMS record, old EKG, old radiological studies, urgent care reports/EKG's, fdc records)? Report findings @ -[Transfer records were reviewed] Differential Diagnosis (chest pain, altered mental status, abdominal pain women, abdominal pain men, vaginal bleeding, weakness, fever, dyspnea, syncope, headache, dizziness, GI bleed, back pain, seizure, CVA, palpatations, mental health, musculoskeletal)? @ -[Differential Syncope: Valvular disease, hypertrophic cardiomyopathy, pulmonary embolism, tamponade, tachycardia, bradycardia, PA, hypovolemia, hemorrhage, dissection, anemia, intracranial hemorrhage, seizure, hypoglycemia, carbon monoxide poisoning, this is not meant to be an all-inclusive list. EKG interpreted by me (3pts min.). @ -[As above] X-rays interpreted by me (1pt min.). @ -[None done] CT interpreted by me (1pt min.). @ -[None done] U/S interpreted by me (1pt. min.). @ -[None done] What testing was considered but not performed or refused? (CT, X-rays, U/S, labs)? Why? @ -[None] What meds were considered but not given or refused? Why? @ -[None] Did you discuss the management of the patient with other professionals (professionals i.e. KELSEY Adamson, SOFT TILE SETTER, lab, RT, psych nurse, social media intern, rifle case repairer, teacher, deportation officer, case manager specialist)? Give summary @ -[No] Was smoking cessation discussed for >3mins.? @ -[No] Was critical care preformed (if so, how long)? @ -[No] Were there social determinants of health that impacted care today? How? (Homelessness, low income, unemployed, alcoholism, drug addiction, transportation, low edu. Level, literacy, decrease access to med. care, ch[facility], rehab)? @ -[No] Was there de-escalation of care discussed even if they declined (Discuss DNR or withdrawal of care, Hospice)? DNR status @ -[No] What co-morbidities impacted this encounter? (DM, HTN, Smoking, COPD, CAD, Cancer, CVA, ARF, Chemo, Hep., AIDS, mental health diagnosis, sleep apnea, morbid obesity)? @ -[None] Was patient admitted / discharged? Hospital course, mention meds given and route, prescriptions, significant lab abnormalities, going to OR and other pertinent info. @ -[Patient is 23-year-old woman with history of pots, who has benign physical exam and workup. At this point the patient stable to continue further evaluation with neurology as outpatient. Undiagnosed new problem with uncertain prognosis? @ -[No] Drug Therapy requiring intensive monitoring for toxicity (Heparin, Nitro, Insuli n, Cardizem)? @ -[No] Were any procedures done? @ -[No] Diagnosis/symptom? @ -[Acute syncope Postprocedural pain related to IUD implantation. Acute, or Chronic, or Acute on Chronic? @ -[Acute Uncomplicated (without systemic symptoms) or Complicated (systemic symptoms)? @ -[Uncomplicated Side effects of treatment? @ -[No] Exacerbation, Progression, or Severe Exacerbation? @ -[No] Poses a threat to life or bodily function? How? (Chest pain, USA, PA, pneumonia, PE, COPD, DKA, ARF, appy, cholecystitis, CVA, Diverticulitis, Homicidal, Suicidal, threat to staff... and all critical care pts) @ -[No] - Lab Data Result diagrams: 10/26/23 00:01 10/26/23 00:01 Lab Results 10/26/23 10/26/23 10/26/23 Range/Units 00:01 00:01 00:01 WBC 9.0 (3.8-10.6) k/uL RBC 4.47 (3.80-5.40) m/uL Hgb 13.5 (11.4-16.0) gm/dL Hct 38.9 (34.0-46.0) % MCV 87.1 (80.0-100.0) fL MCH 30.2 (25.0-35.0) pg MCHC 34.7 (31.0-37.0) g/dL RDW 13.0 (11.5-15.5) % Plt Count 260 (150-450) k/uL MPV 8.4 Neutrophils % 67 % Lymphocytes % 25 % Monocytes % 5 % Eosinophils % 2 % Basophils % 1 % Neutrophils # 6.0 (1.3-7.7) k/uL Lymphocytes # 2.2 (1.0-4.8) k/uL Monocytes # 0.4 (0-1.0) k/uL Eosinophils # 0.2 (0-0.7) k/uL Basophils # 0.1 (0-0.2) k/uL Sodium 138 (137-145) mmol/L Potassium 3.7 (3.5-5.1) mmol/L Chloride 109 H (98-107) mmol/L Carbon Dioxide 23 (22-30) mmol/L Anion Gap 6 mmol/L BUN 11 (7-17) mg/dL Creatinine 0.65 (0.52-1.04) mg/dL Est GFR (CKD-EPI)AfAm >90 (>60 ml/min/1.73 sqM) Est GFR (CKD-EPI)NonAf >90 (>60 ml/min/1.73 sqM) Glucose 97 (74-99) mg/dL Plasma Lactic Acid Quintin 1.6 (0.7-2.0) mmol/L Calcium 8.9 (8.4-10.2) mg/dL Disposition Clinical Impression: Syncope, IUD complication Disposition: HOME SELF-CARE Condition: Good Instructions (If sedation given, give patient instructions): Syncope (ED) Is patient prescribed a controlled substance at d/c from ED?: No Referrals: Yvan Eduardo MD [Primary Care Provider] - 1-2 days
[2023-10-26 02:29] VITALS: BP 119/72; PULSE 91; RESP 16
== END 2023-10-26 02:31 | disposition home or self-care (01) ==
LOC: EC 22:58
DX: T83.31XA Breakdown (mechanical) of intrauterine contraceptive device, initial encounter (principal); R55 Syncope and collapse; I48.91 Unspecified atrial fibrillation; J45.909 Unspecified asthma, uncomplicated; Z90.49 Acquired absence of other specified parts of digestive tract
CPT/HCPCS: 36415; 80048; 83605; 85025; 93005; 96360; 99284

== ENCOUNTER 2023-12-30 11:18 | Day surgery (SDC) | payer BC, OTHER ==
[2023-12-27 12:48] VITALS: BMI 35.6
[~2023-12-30 11:18] MED LIST changes: -ceFAZolin IN SWFI 2 GM/20 ML SYRINGE IVP ONE
[2023-12-30] MEDS: SODIUM CHLORIDE 0.9% 500 ML 500 ML IV ONE (11:32)
[2023-12-30 11:49] VITALS: RESP 16; TEMP 98
[2023-12-30] MEDS: LIDOCAINE 1% INJ 10MG/ML (20 ML MDV) SQ ONE (14:22)
[2023-12-30 15:30] VITALS: BP 112/56; PULSE 86
--- NOTE | 2023-12-30 17:05 | P.EPPROC ---
- EP Procedure Note Electrophysiology Procedure Note: Diagnosis Recurrent syncope Twelve-lead EKG showed sinus rhythm normal AL interval narrow QRS normal ST segments early repolarization abnormality inferolaterally Tilt table test per protocol Baseline blood pressure 124/63 mmHg baseline heart rate 109 beats a minute Patient was tilted upright in angle of 70 degrees per protocol increase in heart rate was noted. 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
--- NOTE | 2023-12-30 17:07 | P.EPPROC ---
- EP Procedure Note Electrophysiology Procedure Note: Procedure: Loop explant under sedation and local anesthesia. Diagnosis: Loop monitor at MIGUEL Patient was brought to the EP lab in a fasting state. Written informed consent was obtained prior to the procedure. The subcutaneous device was successfully explanted under local anesthesia. Preoperative antibiotics were administered. The wound was closed in layers and dressed per protocol. Result: Successful loop monitor explantation. Loop monitor implant under local anesthesia transferred to Indication: History of recurrent palpitations History of inducible atrial fibrillation at EP study in the past, recurrent syncope Patient was brought to the EP lab in a fasting state. Written informed consent was obtained prior to the procedure. The left pectoral area was prepped and draped per protocol. Intravenous antibiotic was administered preoperatively. A subcutaneous Loop monitor was implanted successfully and the wound was closed per protocol. The device was programmed to detect significant latoya- arrhythmic and tachy-arrhythmic events, per protocol. Device and programming details: Syncope protocol, A-fib protocol
== END 2023-12-30 15:15 | disposition home or self-care (01) ==
LOC: CATHEP 11:18
PROVIDERS: ATTEND Internal Medicine Clinical Cardiac Electrophysiology
DX: R55 Syncope and collapse (principal); G90.A Postural orthostatic tachycardia syndrome [POTS]; I48.0 Paroxysmal atrial fibrillation; Z97.5 Presence of (intrauterine) contraceptive device; Z79.51 Long term (current) use of inhaled steroids; Z79.899 Other long term (current) drug therapy
CPT/HCPCS: 93660; 33285; 81025; C1764; J0690; J2001